=== PATIENT | female | born 1985 | race Caucasian/White ===

== ENCOUNTER 2017-08-12 16:36 | Emergency (ER) | payer BC, OTHER ==
[~2017-08-12] VITALS: Ht 175.3 cm; Wt 86.6 kg
[2017-08-12 17:00] VITALS: BP_SYST 116
--- NOTE | 2017-08-12 17:14 | NUR ---
Patient to ER bed 08 to gown for evaluation. Side rails up.
--- NOTE | 2017-08-12 17:16 | NUR ---
Pt complains of fever 103.5 last night with dry cough and body aches. Pt has been taking tylenol and fever continues to come back, pt states today's highest was 101.3. Pt ambulated into ER with no noted difficulty. No other injuries/complaints per pt or noted. Addendum: 08/12/17 at 1719 by VICK Pt states took tylenol at 1400, afebrile in triage.
--- NOTE | 2017-08-12 17:21 | NUR ---
Livia TIP MENDER at bedside to evaluate patient.
--- NOTE | 2017-08-12 18:47 | NUR ---
Pt is resting in bed comfortably with no noted distress or discomfort.
[2017-08-12 18:51] LABS: STREPTOCOCCUS A SCREEN (RAPID) NEGATIVE (NEGATIVE)
[2017-08-12 18:54] LABS: BILIRUBIN,URINE NEGATIVE (NEGATIVE); BLOOD, URINE NEGATIVE (NEGATIVE); CLARITY/URINE CLEAR (CLEAR); COLOR,URINE YELLOW (YELLOW); GLUCOSE,URINE NEGATIVE (NEGATIVE); KETONES,URINE NEGATIVE (NEGATIVE); LEUKOCYTE ESTERASE ,URINE TRACE (NEGATIVE); NITRITE, URINE NEGATIVE (NEGATIVE); PH,URINE 6.5 (5.0-8.0); PROTEIN URINE NEGATIVE (NEGATIVE); UROBILINOGEN,URINE 0.2 (0.2-1.0)
[2017-08-12 19:06] VITALS: BP_SYST 113
--- NOTE | 2017-08-12 19:06 | NUR ---
Patient given written and verbal discharge instructions and verbalizes understanding. ER MD discussed with patient the results and treatment provided. Patient in stable condition. ID arm band removed. Rx of Cipro and Motrin given. Patient educated on pain management and to follow up with PMD. Pain Scale 3/10 tolerable for patient. Opportunity for questions provided and answered.
[2017-08-12 19:15] LABS: BACTERIA,URINE FEW /HPF (None Seen); MUCUS,URINE 2+ /LPF (None Seen); RBC,URINE 0-3 /HPF (0-3)
[2017-08-12 19:19] LABS: INFLUENZA A&B ANTIGEN SCREEN NEGATIVE FOR A & B (NEGATIVE)
== END 2017-08-12 19:06 | disposition home or self-care (01) ==
LOC: SED 16:36
DX: N10 Acute pyelonephritis (principal); J02.9 Acute pharyngitis, unspecified
CPT/HCPCS: 36415; 71010; 81000-TC; 81025; 86403; 86710; 87081; 87086; 99285